=== PATIENT | male | born 1985 | race American Indian/Alaskan Native ===

== ENCOUNTER 2017-09-26 23:34 | Emergency (ER) | payer SELFPAY ==
[2017-09-27 00:02] VITALS: BP 115/65
[2017-09-27 01:00] LABS: Hematocrit 34.9 % (35.5-45.6); Hemoglobin 12.1 gm/dl (11.8-15.2); Mean Corpuscular HGB Conc 35 % (32-34); Mean Corpuscular Hemoglobin 33 pg (28-32); Mean Corpuscular Volume 96 fl (84-94); Platelet Count 163 K/mm3 (140-440); Red Blood Count 3.63 M/mm3 (3.65-5.03); Red Cell Distribution Width 13.9 % (13.2-15.2)
[2017-09-27 01:03] LABS: Bilirubin,Urine NEG (Negative); Blood,Urine NEG (Negative); Color,Urine Yellow (Yellow); Protein,Urine <15 mg/dL mg/dL (Negative); Urobilinogen,Urine < 2.0 mg/dL (<2.0)
[2017-09-27 01:22] LABS: BUN/Creatinine Ratio 13; Blood Urea Nitrogen 10 mg/dL (9-20); Calcium 8.6 mg/dL (8.4-10.2); Hemolysis Index 9
== END 2017-09-27 02:23 | disposition left against medical advice (07) ==
LOC: ED 23:34
DX: R20.0 Anesthesia of skin (principal); Z53.21 Procedure and treatment not carried out due to patient leaving prior to being seen by health care provider
CPT/HCPCS: 36415; 80048; 81001; 85027

== ENCOUNTER 2017-11-16 21:46 | Inpatient (IN) | payer OTHER ==
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
[2017-11-17 03:04] LABS: Hematocrit 29.9 % (35.5-45.6); Hemoglobin 10.4 gm/dl (11.8-15.2); Mean Corpuscular HGB Conc 35 % (32-34); Mean Corpuscular Hemoglobin 33 pg (28-32); Mean Corpuscular Volume 96 fl (84-94); Platelet Count 199 K/mm3 (140-440); Red Blood Count 3.13 M/mm3 (3.65-5.03); Red Cell Distribution Width 14.1 % (13.2-15.2)
--- NOTE | 2017-11-17 03:16 | XRay Report ---
FINAL REPORT EXAM: XR CHEST ROUTINE 2V HISTORY: low-grade fever rhonchus COMPARISON: None available. FINDINGS:: Frontal and lateral views of the chest obtained. Heart upper limits normal in size. Patchy airspace opacity right perihilar region concerning for pneumonia. No effusion or pneumothorax. IMPRESSION:: Right perihilar infiltrate concerning for pneumonia.
--- NOTE | 2017-11-17 03:28 | Cat Scan Report ---
FINAL REPORT EXAM: CT HEAD/BRAIN WO CON HISTORY: headache low-grade fever COMPARISON: None available. TECHNIQUE: Axial images obtained skull base through vertex. FINDINGS: No acute intracranial hemorrhage, midline shift or pathologic extra axial fluid collection. Ventricles and cisterns are normal in size and configuration for the patient's age. Escoto-white differentiation preserved. Calvarium grossly intact. Visualized ocular globes are grossly unremarkable. Mild to moderate polypoid mucosal thickening the visualized paranasal sinuses. Mastoid air cells are clear. IMPRESSION: No grossly acute intracranial abnormality.
[2017-11-17 03:51] LABS: Alanine Aminotransferase 19 units/L (7-56); Albumin 3.5 g/dL (3.9-5); BUN/Creatinine Ratio 13; Blood Urea Nitrogen 10 mg/dL (9-20); Calcium 8.2 mg/dL (8.4-10.2); Hemolysis Index 3
[2017-11-17] MEDS ORDERED: NACL 0.9% 1000 ML IV ONE ×2 (04:14→06:16)
[2017-11-17] MEDS: ZOSYN/NS 4.5GM/100ML 4.5 GM/100 ML VIAL IV SCH ×2 (04:30→12:16)
[2017-11-17 04:32] LABS: Band Neutrophils # (Manual) 0.2 K/mm3; Basophils % (Manual) 0 % (0.0-1.8); Total Cells Counted 100
[2017-11-17 04:33] LABS: Anisocytosis 1+; Ovalocytes Few; Platelet Estimate Consistent w Auto; Tear Drop Cells Few
[2017-11-17] MEDS ORDERED: VANCOMYCIN 1,500 MG in NACL 0.9% 500 ML 500 ML IV ONE (05:00)
[2017-11-17] MEDS ORDERED: LEVAQUIN 750MG/150ML 750 MG/150 ML BAG IV SCH (06:00)
[2017-11-17] MEDS ORDERED: PROVENTIL IH PRN (06:16)
[2017-11-17] MEDS ORDERED: SODIUM CHLORIDE FLUSH SYRINGE 10 ML IV PRN (06:16)
[2017-11-17] MEDS ORDERED: TYLENOL PO PRN (06:16)
[2017-11-17] MEDS ORDERED: ZOFRAN IV PRN (06:16)
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
[2017-11-17 07:59] LABS: Bilirubin,Urine NEG (Negative); Blood,Urine NEG (Negative); Color,Urine Yellow (Yellow); Mucus,Urine FEW /HPF; Urobilinogen,Urine < 2.0 mg/dL (<2.0); WBC,Urine < 1.0 /HPF (0.0-6.0)
[2017-11-17] MEDS ORDERED: SODIUM CHLORIDE FLUSH SYRINGE 10 ML IV SCH (10:00)
[2017-11-17] MEDS ORDERED: ZITHROMAX 500 MG in NACL 0.9% 250ML 250 ML IV SCH (10:00)
--- NOTE | 2017-11-17 11:13 | Consultation ---
History of Present Illness - Reason for Consult Consult date: 11/17/17 sepsis, hiv Requesting physician: MAUDE PACHECO - History of Present Illness 31 y/o male with history of HIV diagnosed in 2007, last time taking ART in 2012 (stopped due to side effects); admitted on 11/16/17 due to severe right sided headache which he describes as "an electrical shock" sharp, rating a 7/10 in intensity and has been ongoing for 2-3 weeks with no associated blurry vision or photophobia. He also noted bilateral feet numbness and fever for a week. Denies AMS, N/V/D, abdominal pain. Denies cough. Denies sore throat. [place]. In the ED, temp temp 99.7 went to 101.7, HR 101, R 16, BP 109/65. WBC 2.7. Hg 10.4. Plat 199. Creat 0.8. AST 44. UA neg. CT head neg. CXR Right perihilar infiltrate. Microbiology: Blood cultures: 11/16 ngtd Current Antimicrobials: azithro levaquin zosyn Previous Antimicrobials: Past History Past Medical History: HIV/AIDS Past Surgical History: Other (skin ) Social history: full code Family history: no significant family history Medications and Allergies Allergies Allergy/AdvReac Type Severity Reaction Status Date / Time No Known Allergies Allergy Unverified 09/27/17 00:08 Home Medications Medication Instructions Recorded Confirmed Last Taken Type No Known Home Medications [No 11/17/17 11/17/17 Unknown History Reported Home Medications] Active Meds: Active Medications Acetaminophen (Tylenol) 650 mg PO Q4H PRN PRN Reason: Pain MILD(1-3)/Fever >100.5/DANIEL Albuterol (Proventil) 2.5 mg IH Q4HRT PRN PRN Reason: Shortness Of Breath Heparin Sodium (Porcine) (Heparin) 5,000 unit SUB-Q Q8HR SONALI Levofloxacin/Dextrose (Levaquin 750mg/150ml) 750 mg in 150 mls @ 100 mls/hr IV Q24H SONALI; Protocol Last Admin: 11/17/17 07:25 Dose: 100 mls/hr Piperacillin Sod/Tazobactam Sod (Zosyn/Ns 4.5gm/100ml) 4.5 gm in 100 mls @ 200 mls/hr IV Q8H SONALI; Protocol Last Admin: 11/17/17 04:30 Dose: 200 mls/hr Azithromycin 500 mg/ Sodium (Chloride) 250 mls @ 250 mls/hr IV Q24HR SONALI Ondansetron HCl (Zofran) 4 mg IV Q8H PRN PRN Reason: Nausea And Vomiting Sodium Chloride (Sodium Chloride Flush Syringe 10 Ml) 10 ml IV BID SONALI Sodium Chloride (Sodium Chloride Flush Syringe 10 Ml) 10 ml IV PRN PRN PRN Reason: LINE FLUSH Physical Examination - Physical Exam Narrative exam: General appearance: Alert in NAD, conversant Eyes: anicteric sclerae, moist conjunctivae; no lid-lag; PERRLA HENT: Atraumatic; oropharynx clear with moist mucous membranes and no mucosal ulcerations/no oral thrush; normal hard and soft palate. Normal external ears.+ nasal discoloration Neck: Trachea midline; supple, no thyromegaly or lymphadenopathy Lungs: CTA, with normal respiratory effort and no intercostal retractions CV: RRR, no murmurs Abdomen: Soft, non-tender; no masses or hepatosplenomegaly Extremities: No peripheral edema or extremity lymphadenopathy Skin: Normal temperature, turgor and texture; no rash, ulcers or subcutaneous nodules Psych: Appropriate affect, alert and oriented to person, place and time. Neuro: alert and oriented x 3. Moving all extermities Lines: No CVL / PICC - Constitutional Vitals: Vital Signs Temp Pulse Resp BP Pulse Ox 99.9 F H 87 16 103/67 98 11/17/17 06:30 11/17/17 09:31 11/17/17 09:31 11/17/17 09:31 11/17/17 06:30 Temperature -Last 24 Hours Temperature 99.9 F Temperature 100.1 F Temperature 101.7 F Temperature 99.7 F Results - Labs CBC & Chem 7: 11/17/17 02:50 11/17/17 02:50 Labs: Abnormal lab results 11/17/17 11/17/17 Range/Units 02:50 02:50 WBC 2.7 L (4.5-11.0) K/mm3 RBC 3.13 L (3.65-5.03) M/mm3 Hgb 10.4 L (11.8-15.2) gm/dl Hct 29.9 L (35.5-45.6) % MCV 96 H (84-94) fl MCH 33 H (28-32) pg MCHC 35 H (32-34) % Eosinophils % (Manual) 6.0 H (0.0-4.3) % Seg Neutrophils # Man 1.4 L (1.8-7.7) K/mm3 Lymphocytes # (Manual) 0.8 L (1.2-5.4) K/mm3 Sodium 134 L (137-145) mmol/L Chloride 95.2 L (98-107) mmol/L Calcium 8.2 L (8.4-10.2) mg/dL AST 44 H (5-40) units/L Total Protein 8.3 H (6.3-8.2) g/dL Albumin 3.5 L (3.9-5) g/dL Assessment and Plan Assessment: 1) Fever: unclear ? PJP ? meningitis ? MAC ? kaposi/malignancy 2) Presumed pneumonia -CXR Right perihilar infiltrate. ? PJP ? malignancy 3) Pancytopenia ? from AIDS ? malignancy 4) Headaches -CT head neg 5) HIV/AIDS- HIV diagnosed in 2007, last time taking ART in 2012 (stopped due to side effects) 6) Elevated LFTs 7) Oral candidiasis Plan: -follow-up blood cultures -obtain AFB-blood cx -obtain respiratory cultures -check Legionella urine antigen, Streptococcus pneumoniae urine antigen -check Cryptococcal serum antigen -obtain lumbar punture for opening pressure and send CSF specimen for Gram stain and culture, glucose, protein, VDRL, HSV-PCR, cryptococcal antigen and culture -obtain CD4, HIV-viral load, genotype -stop zosyn, azithromycin -continue levaquin -add fluconazole -add bactrim IV -check CT chest, abd pelvis -Hem consult Thank you for your consultation, will follow up with you. Jenni Moser MD Infectious Diseases Specialist [facility] ([facility] M [phone] O [phone]
[2017-11-17] MEDS ORDERED: HEPARIN SUB-Q SCH (14:00)
[2017-11-17 16:41] VITALS: BP 108/61
[2017-11-17] MEDS ORDERED: BACTRIM 350 MG in D5W 500 ML IV SCH (18:00)
[2017-11-18] MEDS ORDERED: ZITHROMAX PO SCH (10:00)
--- NOTE | 2017-11-18 15:22 | Event Note ---
Date: 11/18/17 Patient's left ao 11/17/2017 AGAINST MEDICAL ADVICE.
[2017-11-18 20:33] LABS: HIV-1 RNA QN PCR 6.11 Log cps/mL
[2017-11-19 14:37] LABS: CD4/CD8 Ratio 0.03 (0.86-5.00)
== END 2017-11-17 16:10 | disposition left against medical advice (07) | DRG 974 ==
LOC: ED 21:46 → 3A 11-17 06:16
PROVIDERS: ADMIT Internal Medicine; ATTEND Internal Medicine
DX: B20 Human immunodeficiency virus [HIV] disease (principal); A41.9 Sepsis, unspecified organism; G03.9 Meningitis, unspecified; J18.9 Pneumonia, unspecified organism; B59 Pneumocystosis; B37.0 Candidal stomatitis; A31.0 Pulmonary mycobacterial infection; H53.8 Other visual disturbances; Z53.21 Procedure and treatment not carried out due to patient leaving prior to being seen by health care provider; Z79.899 Other long term (current) drug therapy; Z79.1 Long term (current) use of non-steroidal anti-inflammatories (NSAID)
CPT/HCPCS: 36415; 70450; 71046; 80053; 81001; 82024; 82140; 85007; 85025; 86738; 86850; 86900; 86901; 87040; 87449; 87536; 87901; 96361; 96365; 96367; J0456; J1644; J1956; J2543; J3370; J7030; J7040; J7050; J7060